=== PATIENT | female | born 1975 | race Two or more races ===

== ENCOUNTER 2024-05-03 05:30 | Day surgery (SDC) | payer OTHER ==
[2024-04-24 13:47] VITALS: BP 130/80
[~2024-05-03] VITALS: Ht 157.5 cm; Wt 49.9 kg
[~2024-05-03 05:30] MED LIST: MIRALAX17 GM PO; PERCOCET 5/3251 TAB PO; RECTICARE30 GM TP
[2024-05-03] MEDS ORDERED: BUPIVACAINE HCL 30 ML VIAL IJ ONE (09:45)
[2024-05-03] MEDS ORDERED: DIBUCAINE 30 GM TUBE RECTAL ONE (09:45)
[2024-05-03] MEDS ORDERED: CEFTRIAXONE SODIUM 2,000 MG VIAL IV ONE (09:45)
[2024-05-03] MEDS ORDERED: METRONIDAZOLE/SODIUM CHLORIDE 500 MG/100 ML PIGGYBACK IV ONE (09:45)
[2024-05-03] MEDS ORDERED: POVIDONE-IODINE 118 ML BOTT TOP ONE (09:45)
[2024-05-03] MEDS ORDERED: BUPIVACAINE LIPOSOME/PF 266 MG/20 ML VIAL IJ ONE (09:45)
[2024-05-03] MEDS ORDERED: HEMOSTATIC MATRIX 1 KIT KIT TOP ONE (09:45)
[2024-05-03] MEDS ORDERED: CELECOXIB200 MG PO (14:55)
[2024-05-03] MEDS ORDERED: NEURONTIN300 MG PO (14:55)
[2024-05-03] MEDS ORDERED: INTESTINEX680 M1 PO (14:55)
[2024-05-03] MEDS ORDERED: PERCOCET 5-3251 EACH PO (14:55)
== END 2024-05-03 16:30 | disposition home or self-care (01) ==
LOC: CIR.AMB 05:30
PROVIDERS: ATTEND Surgery
DX: K64.2 Third degree hemorrhoids (principal); K60.1 Chronic anal fissure; K62.5 Hemorrhage of anus and rectum; Z91.02 Food additives allergy status; Z91.040 Latex allergy status